=== PATIENT | female | born 1985 | race Caucasian/White ===

== ENCOUNTER 2020-11-17 14:17 | Emergency (ER) | payer MEDICAID ==
[~2020-11-17] VITALS: Ht 170.2 cm; Wt 85.0 kg
[~2020-11-17 14:17] MED LIST: BUPR1FIL5 PO; DICY10CA53 PO; HYDR50CA PO; IBUP-1222 PO; LEVO500T47 PO; MAG355OR14 PO; METH10TA2 PO; NICO-486 TD; ONDA4TAB10 PO; PANT40VI PO; PROC10TA78 PO; PROM25SU35 PR; TRAM-47 PO
[2020-11-17] MEDS ORDERED: ONDANSETRON 2MG/ML, 2ML IVPush ONE (15:00)
[2020-11-17] MEDS ORDERED: HYDROmorphone 1 MG/ML, 1ML INJ IV ONE (15:00)
[2020-11-17] MEDS ORDERED: SODIUM CHLORIDE FLUSH 10ML SYR IVF ONE (15:00)
[2020-11-17] MEDS ORDERED: SODIUM CHLORIDE 0.9% 1,000ML IVBOLUS ONE (15:00)
[2020-11-17] MEDS ORDERED: HYDROmorphone 1 MG/ML, 1ML INJ ONE ×2 (15:12→17:47)
[2020-11-17] MEDS ORDERED: ONDANSETRON 2MG/ML, 2ML ONE (15:12)
[2020-11-17 15:20] LABS: BASOPHILS % (AUTO) 0 % (0-1); EOSINOPHILS % (AUTO) 0 % (1-7); LYMPHOCYTES % (AUTO) 11 % (22-44); MEAN CORPUSCULAR HGB CONC 33.8 g/dL (32.4-35.8); MONOCYTES % (AUTO) 9 % (2-9); NEUTROPHILS % (AUTO) 79 % (42-75); PLATELET COUNT 302 x10^3/uL (130-400); RED BLOOD COUNT 4.56 x10^6/uL (3.82-5.3); RED CELL DISTRIBUTION WIDTH 14.7 % (9.6-15.2)
--- NOTE | 2020-11-17 15:30 | NUR ---
NV WITH EPIGASTRIC ABD PAIN SINCE SAT, PLANTAR FOOT PAIN BELOW 5TH TOE
[2020-11-17 15:34] LABS: ALBUMIN 3.3 g/dL (3.4-5.0); ANION GAP 5 mmol/L (5-15); CALCIUM 8.6 mg/dL (8.5-10.1); CHLORIDE 108 mmol/L (98-107)
[2020-11-17 15:39] LABS: ALANINE AMINOTRANSFERASE 19 U/L (12-78); ALKALINE PHOSPHATASE 74 U/L (45-117); BILIRUBIN,TOTAL 0.5 mg/dL (0.2-1.0); CREATININE 0.72 mg/dL (0.55-1.02); TOTAL PROTEIN 7.6 g/dL (6.4-8.2)
--- NOTE | 2020-11-17 15:49 | NUR ---
piv placed-medicated per emar for abd pain rated at 10/10
--- NOTE | 2020-11-17 15:50 | NUR ---
pt medicated by rakan foreman. pt attached to monitors. vss. bentley.
[2020-11-17] MEDS ORDERED: OMNIPAQUE 350 MG/ML, 100ML BOTTLE ONE (16:36)
[2020-11-17 17:18] VITALS: BP 134/87
[2020-11-17] MEDS ORDERED: KETOROLAC 30 MG/1 ML ONE (17:47)
[2020-11-17] MEDS ORDERED: HYDROmorphone 1 MG/ML, 1ML INJ IVPush ONE (18:00)
[2020-11-17] MEDS ORDERED: CEFTRIAXONE 1,000 MG in DEXTROSE 5% 50 ML IVPB ONE (18:00)
[2020-11-17] MEDS ORDERED: KETOROLAC 30 MG/1 ML IVPush ONE (18:00)
[2020-11-17] MEDS ORDERED: DIPHENHYDRAMINE 50 MG/ML, 1ML ONE (18:20)
--- NOTE | 2020-11-17 18:23 | NUR ---
pt states her iv is not in her vein after pain med administration. this rn, hemli rn, and dr. Patrick checked placement of iv. iv flushes easily with blood return. pt broke out in hives when iv rocechin started. rocephine stopped, Dr. Patrick notifed, bendryl adminstered. vss. briannan.
[2020-11-17 18:49] LABS: MICROSCOPIC AUTO
[2020-11-17] MEDS ORDERED: DIPHENHYDRAMINE 50 MG/ML, 1ML IVPush ONE (19:00)
== END 2020-11-17 19:42 | disposition home or self-care (01) ==
LOC: ED 15:41
DX: R10.84 Generalized abdominal pain (principal); R10.13 Epigastric pain; R11.2 Nausea with vomiting, unspecified; R19.7 Diarrhea, unspecified
CPT/HCPCS: 36415; 74177; 80053; 81001; 83690; 84703; 85025; 87077; 87086; 87186; 96374; 96375; 96376; 99285; J1170; J1200; J1885; J2405; J7030; Q9967